=== PATIENT | female | born 1985 | race Caucasian/White ===

== ENCOUNTER 2018-03-22 07:38 | Day surgery (SDC) | payer BC, MEDICAID ==
[2018-03-22] MEDS ORDERED: Lactated Ringers 1,000 ML IV SCH (08:25)
[2018-03-22] MEDS ORDERED: Lidocaine 1%/Sod Bicarbonate in NS 8.4% 1 ML Syringe IDERM PRN (08:25)
--- NOTE | 2018-03-22 09:03 | PCM.PREANE ---
Preanesthetic Assessment - Anesthesia/Transfusion/Family Hx Anesthesia History: Prior Anesthesia Without Reaction Family History of Anesthesia Reaction: No Transfusion History: No Prior Transfusion(s) - Review of Systems General: No Symptoms Pulmonary: No Symptoms, Other (smoker) Cardiovascular: No Symptoms Gastrointestinal: No Symptoms, Other (s/p gastric bypass with no symptoms of GERD) Other: Reports: Diabetes (has hypoglycemic epidsodes 2x per week after gastric bypass) - Physical Assessment NPO Status Date: 03/21/18 NPO Status Time: 22:30 Pulse: 64 O2 Sat by Pulse Oximetry: 100 Respiratory Rate: 16 Blood Pressure: 127/76 Vital Signs: Last Vital Signs Temp 36.4 C 03/22/18 07:50 Pulse 78 03/22/18 07:50 Resp 16 03/22/18 07:50 BP 133/78 03/22/18 07:50 Pulse Ox 100 03/22/18 07:50 Height: 1.55 m Weight: 59.421 kg ASA Class: 2 Mental Status: Alert & Oriented x3 Airway Class: Mallampati = 2 Dentition: Reports: Normal Dentition Thyro-Mental Finger Breadths: 2 Mouth Opening Finger Breadths: 2 ROM/Head Extension: Full Lungs: Clear to Auscultation, Normal Respiratory Effort Cardiovascular: Regular Rate, Regular Rhythm - Allergies Allergies/Adverse Reactions: Allergies Allergy/AdvReac Type Severity Reaction Status Date / Time No Known Allergies Allergy Verified 03/22/18 07:54 - Blood Blood Available: No Product(s) Available: None - Anesthesia Plan Pre-Op Medication Ordered: None - Acknowledgements Anesthesia Type Planned: General Anesthesia Pt an Appropriate Candidate for the Planned Anesthesia: Yes Alternatives and Risks of Anesthesia Discussed w Pt/Guardian: Yes Pt/Guardian Understands and Agrees with Anesthesia Plan: Yes PreAnesthesia Questionnaire Genitourinary History: Reports: Renal Calculus, UTI, Recurrent [employer]IST History: Reports: Other OB/BYN History: cervical cancer. Musculoskeletal History: Reports: Fracture Psychiatric History: Reports: Anxiety Endocrine/Metabolic History: Reports: Other (See Below) Other Endocrine/Metabolic History: states is hypoglycemic. Hematologic History: Reports: Anemia Oncologic (Cancer) History: Reports: Breast, Cervix - Past Surgical History GI Surgical History: Reports: Bariatric Procedure Female Surgical History: Reports: Breast Biopsy, Section - SUBSTANCE USE Smoking Status *Q: Current Every Day Smoker Second Hand Smoke Exposure: Yes Days Per Week of Alcohol Use: 1 Number of Drinks Per Day: 3 Total Drinks Per Week: 3 Recreational Drug Use History: No - HOME MEDS Home Medications: Home Meds Cyanocobalamin (Vitamin B12) [Vitamin B12] 1,000 mcg PO DAILY 03/22/18 [History] Escitalopram [Lexapro] 10 mg PO DAILY 03/22/18 [History] Multivitamin with Minerals [Multivitamins with Minerals] 1 tab PO DAILY [History] QUEtiapine [SEROquel] 25 mg PO DAILY 03/22/18 [History] cloNIDine [Catapres] 0.1 mg PO DAILY 03/22/18 [History]
[2018-03-22] MEDS ORDERED: HYDROmorphone 0.5 MG/0.5 ML Syringe IVPUSH PRN (09:17)
[2018-03-22] MEDS ORDERED: ceFAZolin 2 GM in Premix Bag 1 BAG IV ONE (09:35)
[2018-03-22] MEDS ORDERED: Ketorolac 30 MG/ML SDV IVPUSH PRN ×2 (09:49→09:57)
[2018-03-22] MEDS ORDERED: Cyclobenzaprine 10 MG Tab PO PRN ×2 (09:49→09:57)
[2018-03-22] MEDS ORDERED: Acetaminophen/oxyCODONE 325-5 MG Tab PO PRN ×2 (09:49→09:57)
[2018-03-22] MEDS ORDERED: Ondansetron 4 MG/2 ML SDV IVPUSH PRN ×2 (09:49→09:57)
[2018-03-22] MEDS ORDERED: Morphine 15 MG Tab.ER PO SCH ×3 (10:00→14:30)
[2018-03-22] MEDS ORDERED: Sodium Chloride 0.9% 10 ML Syringe FLUSH PRN (10:06)
--- NOTE | 2018-03-22 10:15 | CONS ---
CONSULTING PHYSICIAN: Andreas Go MD DATE OF CONSULTATION: 03/22/2018 REASON FOR CONSULTATION: Orthopedic consultation called for by emergency doctors for evaluation of right ankle injury. HISTORY OF PRESENT ILLNESS: This 32-year-old female was out playing yesterday afternoon around 4:30, when she stepped in a hole, suffered injury to her right ankle, severe pain. The patient was brought into the emergency room at [place], [place], evaluated, had x-rays taken, found to have a fractured ankle. The patient was then referred to the orthopedic service here in [place] for evaluation and possible surgery. The patient presents today at the hospital for evaluation of the right ankle injury. She notes no other injury other than the stressing of the ankle itself. The patient also brought no x-rays with her. On this evaluation, x- rays will be taken here in the Emergency site. The patient's right ankle evaluation found the patient to have severe pain to pressure and palpation over the lateral malleolus. Positive swelling, hematoma formation on the medial malleolus area. Skin is intact. Circulation is intact. Patient does not show any swelling blisters at this point. IMAGING DATA: X-rays were reviewed today which shows a fracture of the right fibula that is displaced laterally. There does not appear to be any separation at the ankle joint or the deltoid ligament insertion site is. No fractures noted at that level. OVERALL IMPRESSION: Acute right ankle fractured fibula along with deltoid ligament tear. Plan will be for the patient to undergo surgical open reduction and internal fixation of the right ankle fracture, possible deltoid ligament repair today. Procedure has been outlined to her. She understands the procedure and has consented to it. ELISA /[id number]
--- NOTE | 2018-03-22 10:27 | CR ---
Right ankle: Three views of the right ankle were obtained. Comparison: No previous study. Slightly displaced lateral malleolus fracture is noted. Soft tissue swelling is seen. No additional bony abnormality is noted. Impression: 1. Slightly displaced lateral malleolus fracture. 2. Soft tissue swelling. Diagnostic code #3
--- NOTE | 2018-03-22 11:15 | HP ---
DATE OF ADMISSION: 03/22/2018 HISTORY OF PRESENT ILLNESS: This is the first orthopedic outpatient admission for surgery for this 32-year- old female who was evaluated on as an emergency consult for evaluation of a right ankle pain. The patient was noted to have a fracture of the fibula that was displaced laterally and injury to the deltoid ligament. The patient had suffered this injury on March 21, 2018. The patient presented to the emergency service for evaluation and after evaluation, is now being scheduled for outpatient surgical repair of the fracture and possible deltoid ligament repair. The procedure has been outlined to her. She understands and has consented to it. ALLERGIES: No known drug allergies. PAST MEDICAL HISTORY: The patient has been a relatively healthy patient. She does take multivitamins, vitamin B12, clonidine, Seroquel, and Lexapro. The patient's medical history, she notes to have problems with hypoglycemia. She also has had gastric bypass surgery and anxiety. PAST SURGICAL HISTORY: Is positive. She has had previous gastric bypass which required general anesthesia. She notes no anesthesia complications. She has a negative bleeding history, negative blood clot history. SOCIAL HISTORY: The patient is a smoker, 1 pack per day. Alcohol, she states is occasional, on a social basis. PHYSICAL EXAMINATION: GENERAL: Today, reveals a well-developed, well-nourished, 32-year-old female in [id number] distress. HEAD, EYES, EARS, NOSE, AND THROAT: Normocephalic. NECK: Supple. CHEST: Clear. CARDIAC: Regular rate. ABDOMEN: Soft. : Intact. EXTREMITIES: Examination of the right ankle reveals severe pain. On direct pressure and palpation of the lateral malleolus area has positive swelling along the medial malleolus with severe pain and pressure. The skin is intact. Circulation is intact. IMAGING DATA: X-rays were reviewed which shows a laterally displaced fracture of the distal fibula. The patient does show intact medial joint area around the medial malleolus and no fractures are noted. ASSESSMENT: 1. Acute fracture of fibula, right ankle. 2. Deltoid ligament tear, right ankle. PLAN: The patient is to undergo surgical repair of the fracture, possible deltoid ligament repair. This procedure was outlined to her. She understands and has consented to it. MMODAL /[id number]
[2018-03-22] MEDS ORDERED: Iodine/Sodium Iodide 2% Tincture 30 ML Bottle ONE (11:31)
[2018-03-22] MEDS ORDERED: Bupivacaine 0.5% 30 ML SDV ONE (11:31)
[2018-03-22] MEDS ORDERED: Midazolam 1 MG/ML 2 ML SDV ONE (11:34)
[2018-03-22] MEDS ORDERED: fentaNYL 250 MCG/5 ML SDV ONE (11:34)
[2018-03-22] MEDS ORDERED: Propofol 200 MG/20 ML SDV ONE (11:34)
[2018-03-22] MEDS ORDERED: Lidocaine 1% 4 ML ONE (11:34)
[2018-03-22] MEDS ORDERED: Ondansetron 4 MG/2 ML SDV ONE (11:34)
[2018-03-22] MEDS ORDERED: ceFAZolin 1 GM Vial ONE (11:35)
[2018-03-22] MEDS ORDERED: Lactated Ringers 1,000 ML ONE (12:13)
[2018-03-22] MEDS ORDERED: HYDROmorphone 0.5 MG/0.5 ML Syringe ONE ×2 (12:34)
[2018-03-22] MEDS ORDERED: Ketorolac 30 MG/ML SDV ONE (13:02)
[2018-03-22] MEDS ORDERED: fentaNYL 100 MCG/2 ML SDV IVPUSH PRN (13:29)
--- NOTE | 2018-03-22 13:31 | PCM.POSTAN ---
POST ANESTHESIA ASSESSMENT - MENTAL STATUS Mental Status: Somnolent - VITAL SIGNS Pulse Rate: 72 SaO2: 94 Resp Rate: 8 Blood Pressure: 117/70 Temperature: 36.6 C - RESPIRATORY Respiratory Status: Respiratory Rate WNL, Airway Patent, O2 Saturation Stable, Supplemental Oxygen - CARDIOVASCULAR CV Status: Pulse Rate WNL, Blood Pressure Stable - GASTROINTESTINAL GI Status: No Symptoms - PAIN Pain Score: 0 - POST OP HYDRATION Hydration Status: Adequate & Stable - OBSERVATIONS Free Text/Narrative:: no anesthesia complications noted
--- NOTE | 2018-03-22 14:51 | CR ---
Right ankle: Nine fluoroscopic spot views utilizing C-arm device were obtained of the right ankle. Comparison: Prior right ankle exam performed earlier on the same day (9 AM). Short intramedullary bubba has been placed affixing previous lateral malleolus fracture. Alignment is close to anatomic. Ankle mortise appears symmetric. No additional abnormality is seen. Final study shows fiberglass cast in place. Fluoroscopy time given as 11.6 seconds. Impression: 1. Fixation of previous lateral malleolus fracture as noted above. Diagnostic code #2
--- NOTE | 2018-03-22 16:00 | OR ---
DATE OF OPERATION: 03/22/2018 SURGEON: Andreas Go MD PREOPERATIVE DIAGNOSIS: 1. Acute displaced fracture, lateral malleolus, right ankle. 2. Deltoid ligament tear, right ankle. POSTOPERATIVE DIAGNOSIS: 1. Acute displaced fracture, lateral malleolus, right ankle. 2. Deltoid ligament tear, right ankle. ANESTHESIA: General. OPERATION PERFORMED: 1. Open reduction and internal fixation, lateral malleolus fracture, Delaney bubba. 2. Closed reduction, deltoid ligament tear, right ankle. 3. Application of short-leg cast, bivalved. DESCRIPTION OF PROCEDURE: The patient was taken to the operative room supine and was placed under general anesthesia. The right leg was then prepped and draped in a standard fashion. After prepping and draping, the operation proceeded with initial fluoroscopic x- rays being evaluated showing the displaced oblique fracture of the distal fibula and mild separation of the medial malleolus, talus joint area. The operation then proceeded with reduction of the fibula. Re-x-ray showed closure of the fracture very nicely and also closure of the slight separation that was noted in the medial malleolar talar gutter area to a more anatomical position. Once that was determined, the operation then proceeded with the previous standard prepping and draping. A lateral incision was placed over the lateral fibula area with a hockey stick anterior at the tip penetrating through the skin and subcutaneous tissues. Sharp dissection was carried right down to the bony structure of the fibula and the fracture area. Fracture hematoma was removed. The area was debrided. The oblique fracture was then reduced and held with a clamp. It was opted to go with a Delaney bubba and this was inserted in a [id number] fashion with a drill hole being placed in the distal tip on the Delaney bubba. Then I inserted, maintaining the reduction of the fracture. To reinforce the oblique fracture site itself, two #1 Vicryl were used as a cerclage suture over the main fibular bone and the fracture to keep the reduction in place and eliminate any motion that might be present. Once that was completed, the operation proceeded with irrigation of the wound area of the medial malleolus and found the reduced ankle joint to have been closed very nicely and was maintained with the Delaney bubba in the fibula. It was opted not to do the anterior approach for a surgical repair of the deltoid ligament rather to treat this nonsurgical. The operation then proceeded with closure of the deep tissues with #1 Vicryl, subcutaneous tissue 2-0 Vicryl, and skin with skin yohana. The short leg cast was applied with good padding and that was bivalved. Hardcopy x-rays were taken after completion of the casting, the fracture maintained this reduction and the medial malleolus talar joint area also maintained its anatomical position. Operation then proceeded with final stabilization. The patient was then transferred to the recovery room, tolerated this whole procedure well; left the operative room, in stable condition to room for recovery. ESTIMATED BLOOD LOSS: MMODAL /[id number]
== END 2018-03-22 16:02 | disposition home or self-care (01) ==
LOC: JD.ED 07:38 → SUPCPDRO 07:38 → JD.ED 08:35 → JD.SDS 09:02
PROVIDERS: ATTEND Specialist
DX: S82.61XA Displaced fracture of lateral malleolus of right fibula, initial encounter for closed fracture (principal); S93.421A Sprain of deltoid ligament of right ankle, initial encounter; F17.210 Nicotine dependence, cigarettes, uncomplicated; F41.9 Anxiety disorder, unspecified; Z79.899 Other long term (current) drug therapy; Z98.84 Bariatric surgery status; X58.XXXA Exposure to other specified factors, initial encounter
CPT/HCPCS: 27792; 36415; 73600; 76000; 80053; 81025; 85025; A9270; C1713; J0690; J1170; J1885; J2250; J2405; J2704; J3010; J7120; J2001; J3490